=== PATIENT | female | born 1965 | race Caucasian/White ===

== ENCOUNTER 2019-12-21 17:11 | Emergency (ER) | payer OTHER | END 2019-12-21 19:30 | disposition home or self-care (01) | LOC: ER 17:11 | DX: R00.0 Tachycardia, unspecified (principal); R07.89 Other chest pain; F41.8 Other specified anxiety disorders; Z03.818 Encounter for observation for suspected exposure to other biological agents ruled out ==

== ENCOUNTER → 2020-04-13 | Emergency (ER) | payer OTHER ==
[~2020-04-13] VITALS: Ht 177.8 cm; Wt 64.0 kg
[~2020-04-13] MED LIST: KETO10TA2 PO; NORFLEX100MG PO; PEPCID20 MG PO; PROTONIX20 MG PO; SINGULAIR10 MG PO
== END | disposition home or self-care (01) ==
LOC: ER 08:42
DX: M54.2 Cervicalgia (principal); R07.89 Other chest pain; Z03.818 Encounter for observation for suspected exposure to other biological agents ruled out

== ENCOUNTER 2021-09-04 08:14 | Emergency (ER) | payer OTHER ==
[~2021-09-04] VITALS: Ht 177.8 cm; Wt 64.4 kg
[2021-09-04] MEDS ORDERED: HYOSCYAMINE0.125 M2 PO (08:26)
== END 2021-09-04 17:03 | disposition home or self-care (01) ==
LOC: ER 08:14
DX: K80.20 Calculus of gallbladder without cholecystitis without obstruction (principal); R10.9 Unspecified abdominal pain; Z88.0 Allergy status to penicillin

== ENCOUNTER 2021-11-18 05:47 | Day surgery (SDC) | payer OTHER ==
[~2021-11-18 05:47] MED LIST changes: +HYOSCYAMINE0.125 M2 PO; +PREVACID30 MG PO
[2021-11-18] MEDS ORDERED: ULTRAM50 MG PO (07:42)
[2021-11-18] MEDS ORDERED: MIRALAX17 GM PO (07:42)
[2021-11-18] MEDS ORDERED: TYLENOL ARTHRI650 MG PO (07:42)
[2021-11-18] MEDS ORDERED: NEURONTIN300 MG PO (07:42)
== END 2021-11-18 12:30 | disposition home or self-care (01) ==
LOC: CIR.AMB 05:47
PROVIDERS: ATTEND Surgery
DX: K80.10 Calculus of gallbladder with chronic cholecystitis without obstruction (principal); Z20.822 Contact with and (suspected) exposure to COVID-19; Z91.013 Allergy to seafood; Z88.0 Allergy status to penicillin

== ENCOUNTER 2022-06-14 15:38 | Emergency (ER) | payer OTHER ==
[~2022-06-14] VITALS: Ht 177.8 cm; Wt 62.6 kg
[~2022-06-14 15:38] MED LIST changes: +MIRALAX17 GM PO; +NEURONTIN300 MG PO; +TYLENOL ARTHRI650 MG PO; +ULTRAM50 MG PO
[2022-06-14] MEDS ORDERED: ALENDRONATE SOD70 MG PO (16:35)
== END 2022-06-14 21:46 | disposition home or self-care (01) ==
LOC: ER 15:38
DX: R10.31 Right lower quadrant pain (principal); K57.90 Diverticulosis of intestine, part unspecified, without perforation or abscess without bleeding; Z88.0 Allergy status to penicillin; Z91.013 Allergy to seafood

== ENCOUNTER 2022-09-20 10:07 | Emergency (ER) | payer OTHER ==
[~2022-09-20] VITALS: Ht 177.8 cm; Wt 67.1 kg
[~2022-09-20 10:07] MED LIST changes: +ALENDRONATE SOD70 MG PO
[2022-09-20] MEDS ORDERED: OMEPRAZOLE MAGN20 MG PO (14:00)
== END 2022-09-20 14:48 | disposition home or self-care (01) ==
LOC: ER 10:07
DX: R10.9 Unspecified abdominal pain (principal); Z88.0 Allergy status to penicillin; Z91.013 Allergy to seafood; M81.8 Other osteoporosis without current pathological fracture; K57.30 Diverticulosis of large intestine without perforation or abscess without bleeding

== ENCOUNTER 2024-08-01 05:00 | Day surgery (SDC) | payer OTHER ==
[2024-07-23 12:51] VITALS: BP 138/82
[~2024-08-01] VITALS: Ht 177.8 cm; Wt 72.6 kg
[~2024-08-01 05:00] MED LIST changes: +OMEPRAZOLE MAGN20 MG PO
[2024-08-01] MEDS ORDERED: CLINDAMYCIN PHOSPHATE 150 MG/ML (600mg) ONE (07:44)
[2024-08-01] MEDS ORDERED: BUPIVACAINE HCL/MPF 0.5% 30ML VIAL ONE (07:44)
[2024-08-01] MEDS ORDERED: LIDOCAINE HCL 1%/EPINEPHRINE 20ML VIAL IJ ONE (09:15)
[2024-08-01] MEDS ORDERED: MORPHINE SULFATE 4 MG/ML VIAL IV ONE (10:30)
== END 2024-08-01 12:00 | disposition home or self-care (01) ==
LOC: CIR.AMB 05:00
PROVIDERS: ATTEND Orthopaedic Surgery
DX: M75.02 Adhesive capsulitis of left shoulder (principal); M75.42 Impingement syndrome of left shoulder; M25.812 Other specified joint disorders, left shoulder; M24.112 Other articular cartilage disorders, left shoulder; Z91.040 Latex allergy status; Z88.0 Allergy status to penicillin; Z91.013 Allergy to seafood